=== PATIENT | male | born 1965 | race African-American/Black ===

== ENCOUNTER 2020-03-04 19:53 | Emergency (ER) | payer OTHER ==
[~2020-03-04] VITALS: Ht 185.4 cm; Wt 74.8 kg
[2020-03-04 20:00] VITALS: BP 139/78
[2020-03-04] MEDS ORDERED: HYDROcodone/Acetamin 5/325 tab ORAL ONE (20:30)
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
[2020-03-04] MEDS ORDERED: ACETAMINOPHEN500 M3 ORAL (21:09)
--- NOTE | 2020-03-04 21:23 | Diagnostic Imaging Report ---
EXAM: CT Head Without Intravenous Contrast CLINICAL HISTORY: PAIN TECHNIQUE: Axial computed tomography images of the head/brain without intravenous contrast. CTDI is 53.4 mGy and DLP is 943.1 mGy-cm. One or more of the following dose reduction techniques were used: automated exposure control, adjustment of the mA and/or kV according to patient size, use of iterative reconstruction technique. COMPARISON: None. FINDINGS: Brain: Encephalomalacia involving the subcortical white matter at the craniotomy site, likely postsurgical. No hemorrhage. Ventricles: Unremarkable. No ventriculomegaly. Bones/joints: Status post a right-sided posterior craniectomy. Soft tissues: Unremarkable. Sinuses: Unremarkable as visualized. No acute sinusitis. Mastoid air cells: Unremarkable as visualized. No mastoid effusion. IMPRESSION: Postoperative changes as described otherwise no acute intracranial abnormality.
--- NOTE | 2020-03-04 21:26 | Diagnostic Imaging Report ---
EXAM: CT Maxillofacial Without Intravenous Contrast CLINICAL HISTORY: PAIN TECHNIQUE: Axial computed tomography images of the face without intravenous contrast. CTDI is 15.3 mGy and DLP is 338.4 mGy-cm. One or more of the following dose reduction techniques were used: automated exposure control, adjustment of the mA and/or kV according to patient size, use of iterative reconstruction technique. COMPARISON: None. FINDINGS: Limitations: Exam is limited due to minimal amount of fat and absence of intravenous contrast, which makes distinction of structures difficult. Bones/joints: The left mandibular gland is larger compared to right. No acute fracture. Soft tissues: See above. Lymph nodes: There is borderline mild lymphadenopathy in the left perimandibular region, likely postinflammatory. Orbits: Unremarkable. Submandibular/parotid glands: At the level of the left submandibular gland there is area of by large calcification measuring approximately 2.0 x 1.6 cm. A adjacent smaller calcifications seen just below this level largest measuring 1.2 cm seen. This may be associated with giant sialoliths. Sinuses: Unremarkable. No air-fluid levels. IMPRESSION: 1. Enlargement of the left mandibular gland with a large calcification likely representing giant sialoliths. A adjacent prominent lymph nodes, likely representing reactive inflammatory response. 2. No acute fracture. Clear paranasal sinuses and mastoids.
[2020-03-04 21:45] VITALS: BP 134/63
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
== END 2020-03-04 21:45 | disposition home or self-care (01) ==
LOC: EMR 20:44
DX: S20.412A Abrasion of left back wall of thorax, initial encounter (principal); S20.219A Contusion of unspecified front wall of thorax, initial encounter; Y09 Assault by unspecified means; Y93.9 Activity, unspecified; Y92.512 Supermarket, store or market as the place of occurrence of the external cause; Z98.890 Other specified postprocedural states
CPT/HCPCS: 70450; 70486; 71101; Z7502; 99284